=== PATIENT | male | born 1965 | race African-American/Black ===

== ENCOUNTER 2016-10-13 15:59 | Emergency (ER) | payer OTHER ==
[~2016-10-13] VITALS: Ht 175.3 cm; Wt 107.0 kg
[~2016-10-13 15:59] MED LIST: MELO15TA2 PO
[2016-10-13 16:01] VITALS: BP 129/68; PULSE 86; RESP 15; TEMP 98.1; O2SAT 99
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
[2016-10-13] MEDS ORDERED: MORPHINE SULFATE 4 MG/ML INJ IV ONE (17:30)
[2016-10-13] MEDS ORDERED: SODIUM CHLORIDE 0.9% FLUSH 10 ML FLUSH IVF PRN (17:30)
[2016-10-13 17:45] VITALS: BP 123/66; PULSE 71; RESP 16; O2SAT 97
[2016-10-13 17:48] LABS: BASOPHIL # 0.1 TH/MM3 (0-0.2); BASOPHIL % 0.9 % (0.0-2.0); EOSINOPHIL # 0.1 TH/MM3 (0-0.4); EOSINOPHIL % 1.2 % (0.0-4.0); HEMATOCRIT 39.1 % (39.0-51.0); HEMO FLAGS DIFF FINAL; LYMPH % 34.9 % (9.0-44.0); LYMPHOCYTE # 2.5 TH/MM3 (1.0-4.8); MEAN CELL VOLUME 83.9 FL (80.0-100.0); MEAN CORPUSCULAR HEMOGLOBIN 27.9 PG (27.0-34.0); MEAN CORPUSCULAR HGB CONC 33.3 % (32.0-36.0); MONO % 7.2 % (0.0-8.0); NEUT % 55.8 % (16.0-70.0); PLATELET COUNT 243 TH/MM3 (150-450); RED BLOOD COUNT 4.66 MIL/MM3 (4.50-5.90); WHITE BLOOD COUNT 7.1 TH/MM3 (4.0-11.0)
[2016-10-13 18:03] LABS: ALT (GPT) 36 U/L (12-78); ANION GAP 8 MEQ/L (5-15); AST (GOT) 17 U/L (15-37); BICARBONATE 24.5 MEQ/L (21.0-32.0); BLOOD UREA NITROGEN 16 MG/DL (7-18); CHLORIDE 109 MEQ/L (98-107); GLOMERULAR FILTRATION RATE 82 ML/MIN (>89); POTASSIUM 3.5 MEQ/L (3.5-5.1); SODIUM (NA) 141 MEQ/L (136-145)
[2016-10-13 18:04] LABS: APTT (PATIENT) 24.7 SEC (24.3-30.1); PROTHROMBIN TIME - PATIENT 11.1 SEC (9.8-11.6)
[2016-10-13 18:05] LABS: ALKALINE PHOSPHATASE 69 U/L (45-117); TOTAL BILIRUBIN ADULT 0.6 MG/DL (0.2-1.0)
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
[2016-10-13 18:45] VITALS: BP 117/64; PULSE 61; RESP 16; O2SAT 97
[2016-10-13] MEDS ORDERED: IOHEXOL 350 MG/ML 10 ML VIAL (for RAD DIAG) IV ONE (19:19)
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
[2016-10-13 19:25] VITALS: BP 126/67; PULSE 76; RESP 20; O2SAT 97
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
[2016-10-13] MEDS ORDERED: ROBA500T PO (20:10)
[2016-10-13] MEDS ORDERED: HYDR-3533 PO (20:10)
== END 2016-10-13 20:40 | disposition home or self-care (01) ==
LOC: NEPD 15:59
DX: S16.1XXA Strain of muscle, fascia and tendon at neck level, initial encounter (principal); R91.8 Other nonspecific abnormal finding of lung field; M79.632 Pain in left forearm; V49.40XA Driver injured in collision with unspecified motor vehicles in traffic accident, initial encounter
CPT/HCPCS: 70450; 71010; 71260; 72125; 73090; 74177; 80053; 80307; 85025; 85610; 85730; 86850; 86900; 86901; 96374; 99284; J2270; L0150; Q9967

== ENCOUNTER 2017-10-09 20:37 | Observation (INO) | payer SELFPAY ==
[~2017-10-09] VITALS: Ht 175.3 cm; Wt 110.6 kg
[~2017-10-09 20:37] MED LIST changes: +HYDR-3533 PO; -MELO15TA2 PO; +ROBA500T PO
[2017-10-09 20:51] VITALS: BP 127/78; PULSE 77; RESP 18; TEMP 99; O2SAT 97
--- NOTE | 2017-10-09 20:59 | PD ---
HPI Chief Complaint: Chest Pain Time Seen by Provider: 20:55 Travel History International Travel<30 days: No Contact w/Intl Traveler<30days: No Traveled to known affect area: No History of Present Illness HPI 52-year-old male patient with history of rheumatic heart disease, heart murmur, presents to the ER today because of several days history of intermittent chest discomfort, currently having a 5-6 out of 10 chest pain, dyspnea on exertion, shortness of breath, coughing. He has also noticed that he has been having increased swelling in his legs. He denies any fevers, vomiting, or any other symptoms. Modifying Factors: Worse with exertion Associated Signs & Symptoms: Chest discomfort, shortness of breath, coughing Risk Factors: History of heart [facility] Past Medical History Arthritis: Yes (POSSIBLE) Blood Disorders: No Cancer: No Cardiovascular Problems: Yes (HTN) High Cholesterol: No Chest Pain: Yes Congestive Heart Failure: No Diminished Hearing: No Endocrine: No Genitourinary: No Hypertension: Yes Immune Disorder: No Musculoskeletal: No Psychiatric: No Reproductive: No Respiratory: No Past Surgical History Appendectomy: Yes Body Medical Devices: ANKLE PAIN Social History Alcohol Use: Yes (OCCASIONALLY ) Tobacco Use: No Substance Use: No Allergies-Medications (Allergen,Severity, Reaction): Coded Allergies: No Known Allergies (Verified Adverse Reaction, Unknown, 10/09/17) Reported Meds & Prescriptions Reported Meds & Active Scripts Active Review of Systems Except as stated in HPI: all other systems reviewed are Neg Physical Exam Narrative GENERAL: Well-developed middle-age -[place] male patient currently in mild distress. Awake and oriented 3. SKIN: Focused skin assessment warm/dry. HEAD: Atraumatic. Normocephalic. EYES: Pupils equal and round. No scleral icterus. No injection or drainage. ENT: No nasal bleeding or discharge. Mucous membranes pink and moist. NECK: Trachea midline. No JVD. Supple. CARDIOVASCULAR: Regular rate and rhythm. With +2 notable systolic murmur appreciated. RESPIRATORY: No accessory muscle use. Clear to auscultation. Breath sounds equal bilaterally. GASTROINTESTINAL: Abdomen soft, non-tender, nondistended. Hepatic and splenic margins not palpable. MUSCULOSKELETAL: No obvious deformities. No clubbing. No cyanosis. No edema. NEUROLOGICAL: Awake and alert. No obvious cranial nerve deficits. Motor grossly within normal limits. Normal speech. PSYCHIATRIC: Appropriate mood and affect; insight and judgment normal. Data Data Last Documented VS Vital Signs Date Time Temp Pulse Resp B/P (MAP) Pulse Ox O2 Delivery O2 Flow Rate FiO2 10/09/17 22:00 67 18 134/76 (95) 99 Room Air 10/09/17 20:51 99.0 Orders Orders Complete Blood Count With Diff (10/09/17 20:55) Comprehensive Metabolic Panel (10/09/17 20:55) B-Type Natriuretic Peptide (10/09/17 20:55) D-Dimer (10/09/17 20:55) Act Partial Throm Time (Ptt) (10/09/17 20:55) Prothrombin Time / Inr (Pt) (10/09/17 20:55) Ckmb (Isoenzyme) Profile (10/09/17 20:55) Troponin I (10/09/17 20:55) Iv Access Insert/Monitor (10/09/17 20:55) Ecg Monitoring (10/09/17 20:55) Oximetry (10/09/17 20:55) Oxygen Administration (10/09/17 20:55) Chest, Single Ap (10/09/17 20:55) Sodium Chloride 0.9% Flush (Ns Flush) (10/09/17 21:00) Shoulder, Limited(2vws) (10/09/17 20:55) CKMB (10/09/17 21:00) CKMB% (10/09/17 21:00) Electrocardiogram (10/09/17 ) Admit Order (Ed Use Only) (10/09/17 22:37) Labs Laboratory Tests Test 10/09/17 21:00 White Blood Count 5.5 TH/MM3 Red Blood Count 4.68 MIL/MM3 Hemoglobin 12.9 GM/DL Hematocrit 39.1 % Mean Corpuscular Volume 83.4 FL Mean Corpuscular Hemoglobin 27.5 PG Mean Corpuscular Hemoglobin Concent 33.0 % Red Cell Distribution Width 13.4 % Platelet Count 241 TH/MM3 Mean Platelet Volume 9.0 FL Neutrophils (%) (Auto) 48.5 % Lymphocytes (%) (Auto) 40.5 % Monocytes (%) (Auto) 6.6 % Eosinophils (%) (Auto) 2.1 % Basophils (%) (Auto) 2.3 % Neutrophils # (Auto) 2.7 TH/MM3 Lymphocytes # (Auto) 2.2 TH/MM3 Monocytes # (Auto) 0.4 TH/MM3 Eosinophils # (Auto) 0.1 TH/MM3 Basophils # (Auto) 0.1 TH/MM3 CBC Comment DIFF FINAL Differential Comment Prothrombin Time 10.9 SEC Prothromb Time International Ratio 1.1 RATIO Activated Partial Thromboplast Time 23.9 SEC D-Dimer Quantitative (PE/DVT) 0.25 MG/L FEU Blood Urea Nitrogen 13 MG/DL Creatinine 1.00 MG/DL Random Glucose 104 MG/DL Total Protein 8.1 GM/DL Albumin 3.7 GM/DL Calcium Level 8.5 MG/DL Alkaline Phosphatase 72 U/L Aspartate Amino Transf (AST/SGOT) 18 U/L Alanine Aminotransferase (ALT/SGPT) 32 U/L Total Bilirubin 0.9 MG/DL Sodium Level 138 MEQ/L Potassium Level 3.5 MEQ/L Chloride Level 106 MEQ/L Carbon Dioxide Level 27.9 MEQ/L Anion Gap 4 MEQ/L Estimat Glomerular Filtration Rate 95 ML/MIN Total Creatine Kinase 613 U/L Creatine Kinase MB 3.9 NG/ML Creatine Kinase MB % 0.6 % Troponin I LESS THAN 0.02 NG/ML B-Type Natriuretic Peptide 125 PG/ML MDM Medical Decision Making Medical Screen Exam Complete: Yes Emergency Medical Condition: Yes Medical Record Reviewed: Yes Interpretation(s) EKG shows normal sinus rhythm at a rate of 80 bpm. No signs of acute ST elevations or depressions identified. Laboratory Tests Test 10/09/17 21:00 Hemoglobin 12.9 GM/DL (13.0-17.0) Basophils (%) (Auto) 2.3 % (0.0-2.0) Activated Partial Thromboplast Time 23.9 SEC (24.3-30.1) Anion Gap 4 MEQ/L (5-15) Total Creatine Kinase 613 U/L (39-308) Creatine Kinase MB 3.9 NG/ML (0.5-3.6) Troponin I LESS THAN 0.02 NG/ML B-Type Natriuretic Peptide 125 PG/ML (0-100) Last 24 hours Impressions Shoulder X-Ray 10/09/17 [id number] Signed Impressions: Service Date/Time: Monday, October 09, 2017 21:09 - CONCLUSION: 1. Right a.c. joint separation with the distal clavicle above the level of the acromion. Grey Christianson MD Chest X-Ray [id number] Signed Impressions: Service Date/Time: Monday, October 09, 2017 21:07 - CONCLUSION: 1. Mild basilar atelectasis. No effusion or pneumothorax. Grey Christianson MD Differential Diagnosis ACS versus dysrhythmias versus CHF versus pneumonia Narrative Course EKG does not show any dysrhythmias or any signs of acute ST changes. Cardiac enzymes are negative. His chest x-ray did not show any signs of acute pulmonary processes. At this point, considering the chest pains, plan would be to admit the patient to chest pain center for further evaluation of chest pains. Case this discussed with Dr. Yao for admission to chest pain center. Diagnosis Primary Impression: Chest pain Admitting Information Admitting Physician Requests: Admit Arabella Knutson MD Oct 09, 2017 20:59
[2017-10-09] MEDS ORDERED: SODIUM CHLORIDE 0.9% FLUSH 10 ML FLUSH IVF PRN (21:00)
[2017-10-09 21:11] LABS: AUTOMATED NEUTROPHIL # 2.7 TH/MM3 (1.8-7.7); BASOPHIL # 0.1 TH/MM3 (0-0.2); BASOPHIL % 2.3 % (0.0-2.0); EOSINOPHIL # 0.1 TH/MM3 (0-0.4); EOSINOPHIL % 2.1 % (0.0-4.0); HEMATOCRIT 39.1 % (39.0-51.0); HEMOGLOBIN 12.9 GM/DL (13.0-17.0); LYMPH % 40.5 % (9.0-44.0); LYMPHOCYTE # 2.2 TH/MM3 (1.0-4.8); MEAN CELL VOLUME 83.4 FL (80.0-100.0); MEAN CORPUSCULAR HEMOGLOBIN 27.5 PG (27.0-34.0); MONO % 6.6 % (0.0-8.0); MONOCYTE # 0.4 TH/MM3 (0-0.9); NEUT % 48.5 % (16.0-70.0); PLATELET COUNT 241 TH/MM3 (150-450); RED BLOOD COUNT 4.68 MIL/MM3 (4.50-5.90); RED CELL DISTRIBUTION WIDTH 13.4 % (11.6-17.2); WHITE BLOOD COUNT 5.5 TH/MM3 (4.0-11.0)
[2017-10-09 21:21] LABS: CHLORIDE 106 MEQ/L (98-107); SODIUM (NA) 138 MEQ/L (136-145)
[2017-10-09 21:24] LABS: CALCIUM 8.5 MG/DL (8.5-10.1)
[2017-10-09 21:25] LABS: ALBUMIN 3.7 GM/DL (3.4-5.0); BICARBONATE 27.9 MEQ/L (21.0-32.0); BLOOD UREA NITROGEN 13 MG/DL (7-18); GLUCOSE,RANDOM 104 MG/DL (74-106)
[2017-10-09 21:27] LABS: INTERNATIONAL NORMALIZED RATIO 1.1 RATIO; PROTHROMBIN TIME - PATIENT 10.9 SEC (9.8-11.6)
[2017-10-09 21:28] LABS: ALT (GPT) 32 U/L (12-78); AST (GOT) 18 U/L (15-37); GLOMERULAR FILTRATION RATE 95 ML/MIN (>89)
[2017-10-09 21:29] LABS: TOTAL BILIRUBIN ADULT 0.9 MG/DL (0.2-1.0); TOTAL PROTEIN 8.1 GM/DL (6.4-8.2)
[2017-10-09 21:31] LABS: ALKALINE PHOSPHATASE 72 U/L (45-117)
[2017-10-09 21:32] LABS: D-DIMER 0.25 MG/L FEU (0.00-0.50)
[2017-10-09 21:33] LABS: TROPONIN I LESS THAN 0.02 NG/ML (0.02-0.05)
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
--- NOTE | 2017-10-09 21:57 | RADRPT ---
EXAM DATE/TIME: 10/09/2017 21:09 [facility] COMPARISON: No previous studies available for comparison. INDICATIONS : Right shoulder pain. No known injury. MEDICAL HISTORY : None. SURGICAL HISTORY : None. ENCOUNTER: Initial ACUITY: 1 day PAIN SCORE: 7/10 LOCATION: Right scapular FINDINGS: Two view examination of the right shoulder demonstrates separation at the right a.c. joint with cepha lad displacement of the distal clavicle. No acute fracture. CONCLUSION: 1. Right a.c. joint separation with the distal clavicle above the level of the acromion. Grey Christianson MD on October 09, 2017 at 21:54 Board Certified Radiologist. This report was verified electronically.
[2017-10-09 22:00] VITALS: BP 134/76; PULSE 67; RESP 18; O2SAT 99
[2017-10-09 23:00] VITALS: BP 129/66; PULSE 60; RESP 18; O2SAT 98
[2017-10-09] MEDS ORDERED: ACETAMINOPHEN 500 MG CPLT PO PRN (23:00)
[2017-10-09] MEDS ORDERED: MORPHINE SULFATE 2 MG/ML SYRINGE IV PUSH PRN (23:00)
[2017-10-09] MEDS ORDERED: NITROGLYCERIN 0.4 MG SL 25 TABS/BTL SL PRN (23:00)
[2017-10-09] MEDS ORDERED: HEPARIN SODIUM - SQ 10,000 UNITS/ML VIAL SQ SCH (23:00)
[2017-10-09] MEDS ORDERED: SODIUM CHLORIDE 0.9% FLUSH 10 ML FLUSH IV FLUSH PRN (23:00)
[2017-10-09 23:18] VITALS: O2SAT 98
[2017-10-10 00:28] LABS: TROPONIN I LESS THAN 0.02 NG/ML (0.02-0.05)
[2017-10-10 00:30] VITALS: BP 147/76
[2017-10-10 01:00] VITALS: BP 147/75; PULSE 65; RESP 16; TEMP 97.4; O2SAT 97
[2017-10-10 01:20] VITALS: PULSE 63
[2017-10-10] MEDS: ACETAMINOPHEN/HYDROcodone 325 MG/7.5 MG TAB PO PRN ×2 (01:30→07:17)
[2017-10-10 04:00] VITALS: BP 123/66; PULSE 68; RESP 16; TEMP 98.8; O2SAT 98
[2017-10-10 04:14] LABS: TROPONIN I LESS THAN 0.02 NG/ML (0.02-0.05)
[2017-10-10 08:01] VITALS: PULSE 72
--- NOTE | 2017-10-10 08:23 | HHI.HP ---
HPI Service [facility] ([place], [place])ists Primary Care Physician No Primary Care Physician Admission Diagnosis Chest pain Diagnoses: (1) Right shoulder pain (2) Chest pain Chief Complaint: Right shoulder pain Travel History International Travel<30 Days: No Contact w/Intl Traveler <30 Da: No Traveled to Known Affected Are: No History of Present Illness This is a pleasant 52-year-old male patient with a known medical history of hypertension, rheumatic heart disease and heart murmur who presented to the ED with complaints of right shoulder pain. Patient states that this pain has been intermittent for 2 weeks, is worse with activity and pain seems to radiate to his upper back and left chest area. Patient states that the pain is sharp in nature and rated a 5 out of 10 at its worst on pain scale. Denies any associated shortness of breath, diaphoresis or nausea and vomiting. He denies any recent illness including fever, chills, cough, abdominal pain, nausea, vomiting, diarrhea or dysuria. Patient does state that he follows with Dr. Santana, cardiology in [place], and underwent a cardiac stress test 6 months ago which was reportedly negative. EKG is unremarkable. Troponins are flat. Chest x-ray negative. Right shoulder x-ray showing right AC joint separation with the distal clavicle above the level of the acromion. Review of Systems Constitutional: DENIES: Fatigue, Fever, Chills Eyes: DENIES: Blurred vision, Diplopia Respiratory: DENIES: Cough, Sputum production, Shortness of breath Cardiovascular: COMPLAINS OF: Chest pain Gastrointestinal: DENIES: Abdominal pain, Black stools Musculoskeletal: COMPLAINS OF: Joint pain (Right shoulder pain) Neurologic: DENIES: Abnormal gait Psychiatric: DENIES: Anxiety Except as stated in HPI: all other systems reviewed are Neg Past Family Social History Past Medical History Rheumatic heart disease Murmur Hypertension Past Surgical History Appendectomy Reported Medications Denies any medications at home. Allergies: Coded Allergies: No Known Allergies (Verified Allergy, Unknown, 10/09/17) Active Ordered Medications Current Medications Medications (Trade) Dose Ordered Sig/Rom Route Start Time Stop Time Status Last Admin (NS Flush) 2 ml UNSCH PRN IV FLUSH 10/09/17 23:00 10/10/17 01:30 (NS Flush) 2 ml BID IV FLUSH 10/10/17 09:00 10/09/17 23:59 (Tylenol) 500 mg Q4H PRN PO 10/09/17 23:00 (Drifton 7.5-325 Mg) 1 tab Q4H PRN PO 10/09/17 23:00 10/10/17 07:17 (Morphine Inj) 2 mg Q4H PRN IV PUSH 10/09/17 23:00 (Nitrostat Sl) 0.4 mg Q5M PRN SL 10/09/17 23:00 (Aspirin) 325 mg DAILY PO 10/10/17 09:00 10/10/17 07:16 (Heparin Inj) 5,000 units Q12H SQ 10/09/17 23:00 10/09/17 23:59 Family History Maternal medical history significant for diabetes. Social History Denies any previous or current tobacco use, denies any alcohol use or illicit drug use. Physical Exam Vital Signs Vital Signs Date Time Temp Pulse Resp B/P (MAP) Pulse Ox O2 Delivery O2 Flow Rate FiO2 10/10/17 04:00 98.8 68 16 123/66 (85) 98 10/10/17 01:20 63 10/10/17 01:00 97.4 65 16 147/75 (99) 97 10/10/17 01:00 97.4 65 16 147/75 (99) 97 10/10/17 00:30 64 18 147/76 (99) 99 10/09/17 23:18 98 21 10/09/17 23:00 60 18 129/66 (87) 98 Room Air 10/09/17 22:00 67 18 134/76 (95) 99 Room Air 10/09/17 20:57 77 18 97 Room Air 10/09/17 20:51 99.0 77 18 127/78 (94) 97 Physical Exam GENERAL: Well-developed, well-nourished patient in [facility]. SKIN: Warm and dry. No rash. HEAD: Normocephalic. Atraumatic. EYES: Pupils equal and round. No scleral icterus. No injection or drainage. ENT: No nasal bleeding or discharge. Mucous membranes pink and moist. NECK: Supple. Trachea midline. CARDIOVASCULAR: Regular rate and rhythm. S1, S2 noted. No chest pain to palpation. RESPIRATORY: No accessory muscle use. Clear to auscultation. Breath sounds equal bilaterally. GASTROINTESTINAL: Abdomen soft, non-tender, nondistended. Normoactive bowel sounds x4. MUSCULOSKELETAL: Right shoulder with limited range of motion, pain to elevation , apparent joint dislocation. NEUROLOGICAL: Awake and alert. No obvious cranial nerve deficits. Motor grossly within normal limits. 5/5 muscle strength in bilateral upper and lower extremities. Normal speech. PSYCHIATRIC: Appropriate mood and affect; insight and judgment normal. Laboratory Laboratory Tests Test 10/09/17 21:00 10/10/17 00:01 10/10/17 03:20 White Blood Count 5.5 Red Blood Count 4.68 Hemoglobin 12.9 Hematocrit 39.1 Mean Corpuscular Volume 83.4 Mean Corpuscular Hemoglobin 27.5 Mean Corpuscular Hemoglobin Concent 33.0 Red Cell Distribution Width 13.4 Platelet Count 241 Mean Platelet Volume 9.0 Neutrophils (%) (Auto) 48.5 Lymphocytes (%) (Auto) 40.5 Monocytes (%) (Auto) 6.6 Eosinophils (%) (Auto) 2.1 Basophils (%) (Auto) 2.3 Neutrophils # (Auto) 2.7 Lymphocytes # (Auto) 2.2 Monocytes # (Auto) 0.4 Eosinophils # (Auto) 0.1 Basophils # (Auto) 0.1 CBC Comment DIFF FINAL Differential Comment Prothrombin Time 10.9 Prothromb Time International Ratio 1.1 Activated Partial Thromboplast Time 23.9 D-Dimer Quantitative (PE/DVT) 0.25 Blood Urea Nitrogen 13 Creatinine 1.00 Random Glucose 104 Total Protein 8.1 Albumin 3.7 Calcium Level 8.5 Alkaline Phosphatase 72 Aspartate Amino Transf (AST/SGOT) 18 Alanine Aminotransferase (ALT/SGPT) 32 Total Bilirubin 0.9 Sodium Level 138 Potassium Level 3.5 Chloride Level 106 Carbon Dioxide Level 27.9 Anion Gap 4 Estimat Glomerular Filtration Rate 95 Total Creatine Kinase 613 545 480 Creatine Kinase MB 3.9 3.1 3.0 Creatine Kinase MB % 0.6 0.6 0.6 Troponin I LESS THAN 0.02 LESS THAN 0.02 LESS THAN 0.02 B-Type Natriuretic Peptide 125 Result Diagram: 10/09/17209910/09/172099 Imaging Last Impressions Shoulder X-Ray 10/09/172054 Signed Impressions: Service Date/Time: Monday, October 09, 2017 21:09 - CONCLUSION: 1. Right a.c. joint separation with the distal clavicle above the level of the acromion. Grey Christianson MD Chest X-Ray 10/09/172054 Signed Impressions: Service Date/Time: Monday, October 09, 2017 21:07 - CONCLUSION: 1. Mild basilar atelectasis. No effusion or pneumothorax. Grey Christianson MD Septic Shock Reassessment Septic shock perfusion: reassessment completed Caprini VTE Risk Assessment Caprini VTE Risk Assessment: No/Low Risk (score <= 1) Caprini Risk Assessment Model Point Value = 1 Point Value = 2 Point Value = 3 Point Value = 5 Age 41-60 Minor surgery BMI > 25 kg/m2 Swollen legs Varicose veins or History of unexplained or recurrent spontaneous Oral contraceptives or hormone replacement Sepsis (< 1 month) Serious lung disease, including pneumonia (< 1 month) Abnormal pulmonary function Acute myocardial infarction Congestive heart failure (< 1 month) History of inflammatory bowel disease Medical patient at bed rest Age 61-74 Arthroscopic surgery Major open surgery (> 45 min) Laparoscopic surgery (> 45 min) Malignancy Confined to bed (> 72 hours) Immobilizing plaster cast Central venous access Age >= 75 History of VTE Family history of VTE Factor V Leiden Prothrombin [id number] Lupus anticoagulant Anticardiolipin antibodies Elevated serum homocysteine Heparin-induced thrombocytopenia Other congenital or acquired thrombophilia Stroke (< 1 month) Elective arthroplasty Hip, pelvis, or leg fracture Acute spinal cord injury (< 1 month) Prophylaxis Regimen Total Risk Factor Score Risk Level Prophylaxis Regimen 0-1 Low Early ambulation 2 Moderate Order ONE of the following: *Sequential Compression Device (SCD) *Heparin 5000 units SQ BID 3-4 Higher Order ONE of the following medications: *Heparin 5000 units SQ TID *Enoxaparin/Lovenox 40 mg SQ daily (WT < 150 kg, CrCl > 30 mL/min) *Enoxaparin/Lovenox 30 mg SQ daily (WT < 150 kg, CrCl > 10-29 mL/min) *Enoxaparin/Lovenox 30 mg SQ BID (WT < 150 kg, CrCl > 30 mL/min) AND/OR *Sequential Compression Device (SCD) 5 or more Highest Order ONE of the following medications: *Heparin 5000 units SQ TID (Preferred with Epidurals) *Enoxaparin/Lovenox 40 mg SQ daily (WT < 150 kg, CrCl > 30 mL/min) *Enoxaparin/Lovenox 30 mg SQ daily (WT < 150 kg, CrCl > 10-29 mL/min) *Enoxaparin/Lovenox 30 mg SQ BID (WT < 150 kg, CrCl > 30 mL/min) AND *Sequential Compression Device (SCD) Assessment and Plan Problem List: (1) Right shoulder pain ICD Code: M25.511 - Pain in right shoulder Plan: Right shoulder x-ray reviewed showing right AC joint separation with the distal clavicle above the level of the acromion. Orthopedics called and spoke to about case, orthopedics reviewed imaging with recommendations for sling and outpatient follow-up. Spoke to and patient at length regarding treatment plan and they are agreeable to follow-up. Will make an appointment. Pain medications will be written including Drifton and anti-inflammatories. Chest pain likely secondary to musculoskeletal in nature, appears to be referred from right shoulder. Serial EKGs and serial troponins have been ordered for ruling out ACS purposes. Troponins are flat. EKG reviewed showing sinus rhythm with no arrhythmias, some mild LVH. Aspirin given today. Blood pressure has been stable since admission. Drifton p.o. available as needed per pain scale. Chest pain is resolved. One-time dose of Toradol has been given. Chest x-ray reviewed showing no acute process. Vital signs are stable. CPK mildly elevated, suspect secondary to right shoulder. Encouraged outpatient follow-up. Assessment and Plan Will discharge home today with right shoulder sling and recommendations for follow-up to orthopedics in the clinic. Discharge patient to home Condition on discharge: Improved Heart healthy diet as tolerated. Ad Sherrie activity. Rx written: See notes. Follow-up with primary care physician in orthopedics. Code Status Full code. Discussed Condition With Patient and . Marina Pires Oct 10, 2017 08:23
[2017-10-10] MEDS ORDERED: KETOROLAC TROMETHAMINE 30 MG/ML (IVP) VIAL IV PUSH ONE (09:00)
[2017-10-10] MEDS ORDERED: INFLUENZA VIRUS VACCINE (QUADRIVALENT) 0.5 ML SYR IM ONE (09:00)
[2017-10-10] MEDS ORDERED: ASPIRIN 325 MG TAB PO SCH (09:00)
[2017-10-10] MEDS ORDERED: SODIUM CHLORIDE 0.9% FLUSH 10 ML FLUSH IV FLUSH SCH (09:00)
[2017-10-10] MEDS ORDERED: KETOROLAC TROMETHAMINE 60 MG/2 ML (IM) VIAL IM ONE (09:00)
--- NOTE | 2017-10-10 09:17 | HHI.DCPOC ---
Discharge Care Plan Diagnosis: (1) Right shoulder pain Goals to Promote Your Health * To prevent worsening of your condition and complications * To maintain your health at the optimal level Directions to Meet Your Goals Take your medications as prescribed Follow your dietary instruction Follow activity as directed Keep your appointments as scheduled Take your immunizations and boosters as scheduled If your symptoms worsen call your PCP, if no PCP go to Urgent Care Center or Emergency Room Smoking is Dangerous to Your Health. Avoid second hand smoke Call the 24-hour hour crisis hotline for domestic abuse at [place] Pires Oct 10, 2017 09:17
[2017-10-10] MEDS ORDERED: HYDR-3580 PO (09:30)
[2017-10-10] MEDS ORDERED: NAPR500T2 PO (09:30)
--- NOTE | 2017-10-10 16:50 | EKG ---
Date Performed: 10/10/2017 Time Performed: 00:04:22 PTAGE: 52 years EKG: Sinus rhythm LEFT ATRIAL ENLARGEMENT POSSIBLE LEFT VENTRICULAR HYPERTROPHY NONSPECIFIC T-WAVE ABNORMALITY Since p revious tracing, no significant change noted ABNORMAL ECG PREVIOUS TRACING : 10/09/2017 20.42 DOCTOR: Romaine Epstein Interpretating Date/Time 10/10/2017 16:49:42
--- NOTE | 2017-10-10 16:50 | EKG ---
Date Performed: 10/09/2017 Time Performed: 20:42:34 PTAGE: 52 years EKG: Sinus rhythm POSSIBLE LEFT ATRIAL ENLARGEMENT POSSIBLE LEFT VENTRICULAR HYPERTROPHY NONSPECIFIC T-WAVE ABNORMALIT Y Since previous tracing, no significant change noted ABNORMAL ECG PREVIOUS TRACING : 11/22/2013 13.17.52 DOCTOR: Romaine Epstein Interpretating Date/Time 10/10/2017 16:49:07
--- NOTE | 2017-10-10 16:52 | EKG ---
Date Performed: 10/10/2017 Time Performed: 03:05:17 PTAGE: 52 years EKG: Sinus rhythm POSSIBLE LEFT ATRIAL ENLARGEMENT NONSPECIFIC T-WAVE ABNORMALITY Since previous tracing, no significa nt change noted BORDERLINE ECG PREVIOUS TRACING : 10/10/2017 00.04 DOCTOR: Romaine Epstein Interpretating Date/Time 10/10/2017 16:50:22
== END 2017-10-10 10:32 | disposition home or self-care (01) ==
LOC: PHED 20:37 → PHEDA 22:38 → PH3B 10-10 01:00
PROVIDERS: ADMIT Hospitalist; ATTEND Hospitalist
DX: R07.89 Other chest pain (principal); M25.511 Pain in right shoulder; I10 Essential (primary) hypertension; I09.9 Rheumatic heart disease, unspecified; R01.1 Cardiac murmur, unspecified; R06.02 Shortness of breath
CPT/HCPCS: 71045; 73030; 80053; 82550; 82552; 83880; 84484; 85025; 85379; 85610; 85730; 93005; 96372; 96374; 99285; G0378; J1644; J1885